=== PATIENT | female | born 1980 | race Caucasian/White ===

== ENCOUNTER 2017-11-03 11:40 | Observation (INO) | payer OTHER ==
[~2017-11-03] VITALS: Ht 175.3 cm; Wt 100.7 kg
[2017-11-03 11:53] VITALS: BP 98/55
[2017-11-03] MEDS ORDERED: PREN1TAB80 PO (13:01)
== END 2017-11-03 13:15 | disposition home or self-care (01) ==
LOC: 4S 11:40
PROVIDERS: ADMIT Obstetrics & Gynecology; ATTEND Obstetrics & Gynecology
DX: O26.893 Other specified pregnancy related conditions, third trimester (principal); R10.9 Unspecified abdominal pain; O09.523 Supervision of elderly multigravida, third trimester; Z3A.37 37 weeks gestation of pregnancy

== ENCOUNTER 2017-11-07 11:41 | Inpatient (IN) | payer OTHER ==
[~2017-11-07] VITALS: Ht 175.3 cm; Wt 101.2 kg
[~2017-11-07 11:41] MED LIST: PREN1TAB80 PO
[2017-11-07] MEDS ORDERED: 0.9% SODIUM CHLORIDE 10 ML VIAL IVP ONE (12:00)
[2017-11-07] MEDS ORDERED: OXYTOCIN 10 UNITS/ML VIAL IM ONE (12:00)
[2017-11-07] MEDS ORDERED: EPHEDrine SULFATE 50 MG/ML VIAL IM ONE (12:00)
[2017-11-07 12:45] VITALS: BP 101/55
[2017-11-07] MEDS ORDERED: CALC-1038 PO (12:48)
[2017-11-07] MEDS ORDERED: RINGERS SOLUTION,LACTATED 1,000 ML IV ONE (13:51)
[2017-11-07] MEDS ORDERED: METOCLOPRAMIDE HCL 5 MG/ML 2 ML VIAL IVP ONE (14:00)
[2017-11-07] MEDS ORDERED: CITRIC ACID/SODIUM CITRATE 30 ML SOLUTION UDCUP PO ONE (14:00)
[2017-11-07 14:20] LABS: BASOPHILS % (AUTO) 0.4 % (0.0-2.0); EOSINOPHILS % (AUTO) 0.4 % (1.0-6.0); HEMATOCRIT 36.3 % (36-46); HEMOGLOBIN 12.6 g/dL (12.0-16.0); LYMPHOCYTES # (AUTO) 1.4 K/uL (1.0-4.8); MEAN CORPUSCULAR HEMOGLOBIN 31.5 pg (26.0-34.0); MEAN CORPUSCULAR HGB CONC 34.7 G/dL (31.0-37.0); MEAN CORPUSCULAR VOLUME 91 fL (80-100); MONOCYTES # (AUTO) 0.9 K/uL (0.1-1.0); MONOCYTES % (AUTO) 10.4 % (2.0-9.0); NEUTROPHILS % (AUTO) 71.8 % (40.0-70.0); PLATELET COUNT (AUTO)-OB 101 K/uL (150-450); RED CELL DISTRIBUTION WIDTH 15.1 % (11.5-14.5)
[2017-11-07] MEDS ORDERED: FentaNYL CITRATE-PF 100 MCG/2 ML VIAL ONE (15:25)
[2017-11-07] MEDS ORDERED: MORPHINE SULFATE/PF 0.5 MG/ML 10 ML AMP ONE (15:25)
[2017-11-07] MEDS ORDERED: ACETAMINOPHEN 1000 MG/ISO-OSM 100 ML IV ONE (15:25)
[2017-11-07] MEDS ORDERED: TRIAMCINOLONE ACETONIDE 40 MG/ML VIAL ONE (15:51)
[2017-11-07] MEDS ORDERED: DEXAMETHASONE SOD PHOS 4 MG/ML VIAL IVP PRN (16:15)
[2017-11-07] MEDS ORDERED: MORPHINE SULFATE 10 MG/ML SYRINGE IVP PRN (16:15)
[2017-11-07] MEDS ORDERED: FentaNYL CITRATE-PF 100 MCG/2 ML VIAL IVP PRN (16:15)
[2017-11-07] MEDS ORDERED: DiphenhydrAMINE HCL 50 MG/ML VIAL IVP PRN (16:15)
[2017-11-07] MEDS ORDERED: NALOXONE HCL 0.4 MG/ML VIAL IVP PRN (16:15)
[2017-11-07] MEDS ORDERED: NALBUPHINE HCL 10 MG/ML VIAL IVP PRN ×3 (16:15)
[2017-11-07] MEDS ORDERED: ONDANSETRON HCL 4 MG/2 ML VIAL IVP PRN ×2 (16:15)
[2017-11-07] MEDS ORDERED: ACETAMINOPHEN/CODEINE 300-30 MG TABLET PO PRN (17:00)
[2017-11-07] MEDS ORDERED: LANOLIN 7 GM OINTMENT TP PRN (17:00)
[2017-11-07] MEDS ORDERED: DEXTROSE 5%-0.45% SODIUM CHL 1,000 ML IV ONE (18:24)
[2017-11-07] MEDS: DEXTROSE 5%-0.45% SODIUM CHL 1,000 ML IV SCH ×2 (18:34→23:50)
[2017-11-07] MEDS ORDERED: OXYGEN THERAPY IH SCH ×4 (20:00)
[2017-11-07] MEDS ORDERED: PNEUMOCOCCAL VACCINE POLYVALENT 0.5 ML VIAL [PPSV23] IM ONE (20:45)
[2017-11-07] MEDS: MAGNESIUM HYDROXIDE SUSPENSION 30 ML UDCUP PO SCH (21:00)
[2017-11-08] MEDS: ACETAMINOPHEN 1000 MG/ISO-OSM 100 ML IV SCH ×2 (00:04→08:23)
[2017-11-08] MEDS: DiphenhydrAMINE HCL 50 MG/ML VIAL IVP PRN ×2 (03:19→11:19)
[2017-11-08] MEDS: DEXTROSE 5%-0.45% SODIUM CHL 1,000 ML IV SCH ×2 (04:10→08:23)
[2017-11-08] MEDS: MAGNESIUM HYDROXIDE SUSPENSION 30 ML UDCUP PO SCH ×2 (08:22→23:14)
[2017-11-08] MEDS: IBUPROFEN 800 MG TABLET PO SCH ×3 (10:36→23:14)
[2017-11-08] MEDS: ACETAMINOPHEN/CODEINE 300-30 MG TABLET PO PRN (18:39)
[2017-11-09] MEDS: IBUPROFEN 800 MG TABLET PO SCH ×4 (05:43→21:59)
[2017-11-09] MEDS: MAGNESIUM HYDROXIDE SUSPENSION 30 ML UDCUP PO SCH ×2 (09:03→21:00)
[2017-11-09] MEDS: ACETAMINOPHEN/CODEINE 300-30 MG TABLET PO PRN (20:05)
[2017-11-10] MEDS: IBUPROFEN 800 MG TABLET PO SCH (07:44)
[2017-11-10] MEDS ORDERED: IBUP-2071 PO (10:23)
[2017-11-10] MEDS ORDERED: DSS100 PO (10:24)
[2017-11-10] MEDS ORDERED: ACET1TAB12 PO (10:25)
== END 2017-11-10 11:35 | disposition home or self-care (01) | DRG 766 ==
LOC: 4S 11:41 → OBSVTOIN 11:41 → 4S 19:07
PROVIDERS: ADMIT Obstetrics & Gynecology; ATTEND Obstetrics & Gynecology
PROC: 10D00Z1 Extraction of Products of Conception, Low, Open Approach (ICD-10-PCS; principal; 2017-11-07)
PROC: 0UB70ZZ Excision of Bilateral Fallopian Tubes, Open Approach (ICD-10-PCS; 2017-11-07)
DX: O34.211 Maternal care for low transverse scar from previous cesarean delivery (principal); Z37.0 Single live birth; Z3A.38 38 weeks gestation of pregnancy
CPT/HCPCS: 86850; 86900; 86901; 87081; 88302; J0131; J0690; J1200; J2274; J2300; J2590; J2765; J3010; J3301; J3490; J7120